=== PATIENT | male | born 1995 ===

== ENCOUNTER 2017-06-26 23:47 | Emergency (ER) | payer SELFPAY ==
[2017-06-27 00:04] VITALS: BP 140/74; PULSE 82; RESP 18; TEMP 99.3; O2SAT 96
== END 2017-06-27 00:02 | disposition left against medical advice (07) ==
LOC: H.ER 23:47
DX: Z02.89 Encounter for other administrative examinations (principal)

== ENCOUNTER 2018-06-23 03:35 | Emergency (ER) | payer SELFPAY ==
[2018-06-23 03:49] VITALS: BP 125/69; PULSE 63; RESP 16; TEMP 97.5; O2SAT 95
[2018-06-23] MEDS ORDERED: Albuterol-Ipratrop 3 mg / 0.5 (3 ml) UD IH STA ×2 (04:07→04:08)
--- NOTE | 2018-06-23 04:11 | ED PDOC ---
HPI: CCC, URI, Sore Throat Time Seen by Provider: 06/23/18 04:00 Chief Complaint (Nursing): Cough, Cold, Congestion Chief Complaint (Provider): cough History Per: Patient History/Exam Limitations: no limitations Onset/Duration Of Symptoms: Days (3) Current Symptoms Are (Timing): Still Present Additional Complaint(s): 23 y/o male presents for evaluation of productive cough x 3 days. Associated nasal congestion with "thick" yellow discharge. Patient also reports tightness in his chest. Denies fever, headache, nausea/vomiting, shortness of breath, palpitations, abdominal pain, recent travel, sick contacts. Patient reports using a nasal spray and Nyquil with little improvement Past Medical History Reviewed: Historical Data, Nursing Documentation, Vital Signs Vital Signs: Last Vital Signs Temp 97.5 F L 06/23/18 03:46 Pulse 63 06/23/18 03:46 Resp 16 06/23/18 03:46 BP 125/69 06/23/18 03:46 Pulse Ox 95 06/23/18 03:46 Primary Care Provider: FAMILY PROVIDER,NO - Medical History PMH: No Chronic Diseases - Surgical History Surgical History: No Surg Hx - Family History Family History: States: Unknown Family Hx - Immunization History Hx Tetanus Toxoid Vaccination: No Hx Influenza Vaccination: No Hx Pneumococcal Vaccination: No - Home Medications Home Medications: Ambulatory Orders Medication Instructions Recorded Albuterol HFA [Ventolin HFA 90 1 puff IH Q4 PRN #1 inh 06/23/18 mcg/actuation (8 g)] predniSONE [Prednisone] 60 mg PO DAILY #12 tab 06/23/18 - Allergies Allergies/Adverse Reactions: Allergies Allergy/AdvReac Type Severity Reaction Status Date / Time No Known Allergies Allergy Verified 06/26/17 22:03 Review of Systems ROS Statement: Except As Marked, All Systems Reviewed And Found Negative Cardiovascular: Positive for: Chest Pain Respiratory: Positive for: Cough Physical Exam - Reviewed Nursing Documentation Reviewed: Yes Vital Signs Reviewed: Yes - Physical Exam Appears: Positive for: Well, Non-toxic, No Acute Distress Head Exam: Positive for: ATRAUMATIC, NORMAL INSPECTION, NORMOCEPHALIC Skin: Positive for: Normal Color Eye Exam: Positive for: Normal appearance ENT: Positive for: Normal ENT Inspection Cardiovascular/Chest: Positive for: Regular Rate, Rhythm Respiratory: Positive for: Wheezing (diffuse expiratory wheezing) Gastrointestinal/Abdominal: Positive for: Normal Exam Back: Positive for: Normal Inspection Extremity: Positive for: Normal ROM Neurological/Psych: Positive for: Awake, Alert, Oriented (x3) - ECG ECG: Positive for: Viewed By Me (reviewed by ED attending) ECG Rhythm: Positive for: Sinus Rhythm O2 Sat by Pulse Oximetry: 95 - Radiology X-Ray: Viewed By Me X-Ray Interpretation: No Acute Disease - Progress ED Course And Treament: -ekg -cxr -duoneb -prednisone PO On re-eval, patient states he is feeling better. Wheezing improved Patient educated on findings, discharged with rx Albuterol HFA, Prednisone Advised follow up PMD within 2-3 days Return precautions given Disposition - Clinical Impression Clinical Impression: Bronchitis - Patient ED Disposition Is Patient to be Admitted: No Counseled Patient/Family Regarding: Studies Performed, Diagnosis, Need For Followup, Rx Given - Disposition Referrals: [facility], [facility] [Outside] Disposition: Routine/Home Disposition Time: 05:00 Condition: IMPROVED Prescriptions: Albuterol HFA [Ventolin HFA 90 mcg/actuation (8 g)] 1 puff IH Q4 PRN #1 inh PRN Reason: Wheezing predniSONE [Prednisone] 60 mg PO DAILY #12 tab Instructions: Acute Bronchitis
[2018-06-23] MEDS ORDERED: Albuterol-Ipratrop 3 mg / 0.5 (3 ml) UD ONE (04:28)
--- NOTE | 2018-06-23 07:52 | RAD ---
Date of service: 06/23/2018 HISTORY: chest pain, cough COMPARISON: No prior. TECHNIQUE: Chest PA and lateral views FINDINGS: LUNGS: No active pulmonary disease. PLEURA: No significant pleural effusion identified. No pneumothorax apparent. CARDIOVASCULAR: No aortic atherosclerotic calcification present. Normal cardiac size. No pulmonary vascular congestion. OSSEOUS STRUCTURES: No significant abnormalities. VISUALIZED UPPER ABDOMEN: Normal. OTHER FINDINGS: None. IMPRESSION: No acute cardiopulmonary disease appreciated.
== END 2018-06-23 05:20 | disposition home or self-care (01) ==
LOC: H.ER 03:35
DX: J40 Bronchitis, not specified as acute or chronic (principal)